=== PATIENT | female | born 1995 | race Caucasian/White ===

== ENCOUNTER 2016-07-21 23:06 | Inpatient (IN) | payer OTHER ==
[~2016-07-21] VITALS: Ht 154.9 cm; Wt 55.8 kg
[2016-07-21 23:11] VITALS: BP 101/57
--- NOTE | 2016-07-22 00:51 | NUR ---
TO ER BED 4
--- NOTE | 2016-07-22 00:55 | NUR ---
PATIENT PRESENTS TO ED WITH RT UPPER AND LOWER ABD PAIN . PT STATES SHE WAS DIAGNOSED WITH RT OVARIAN CYSTS [id number] AGO . DENIES N/V/D; SKIN IS PINK/WARM/DRY; AAOX4 WITH EVEN AND STEADY GAIT; LUNGS CLEAR BL; HR EVEN AND REGULAR; PT DENIES ANY FEVER, CP, SOB, OR COUGH AT THIS TIME; PATIENT STATES PAIN OF 9/10 AT THIS TIME; VSS; PATIENT POSITIONED FOR COMFORT; HOB ELEVATED; BEDRAILS UP X2; BED DOWN. ER MD MADE AWARE OF PT STATUS. BOYFRIEND AT BEDSIDE AT THIS TIME
[2016-07-22] MEDS ORDERED: KETOROLAC 30 MG/ML VIAL IM ONE (01:20)
[2016-07-22 01:40] LABS: EOSINOPHILS # (AUTO) 0.2 K/uL (0-0.4)
--- NOTE | 2016-07-22 01:42 | NUR ---
PT TO CT AT THIS TIME
[2016-07-22 01:44] LABS: BASOPHILS # (AUTO) 0.4 K/uL (0.00-0.22); BASOPHILS % (AUTO) 3.3 % (0.0-2.0); EOSINOPHILS % (AUTO) 1.7 % (0.0-4.0); HEMATOCRIT 38.5 % (36-48); HEMOGLOBIN 13.3 g/dL (12.0-16.0); LYMPHOCYTES # (AUTO) 3.7 K/uL (2.5-16.5); LYMPHOCYTES % (AUTO) 27.5 % (20.5-51.1); MEAN CORPUSCULAR HEMOGLOBIN 29 pg (27-31); MEAN CORPUSCULAR HGB CONC 34 g/dL (33-37); MEAN CORPUSCULAR VOLUME 85 fL (80-94); MONOCYTES # (AUTO) 0.7 K/uL (0.8-1.0); MONOCYTES % (AUTO) 5.4 % (1.7-9.3); NEUTROPHILS # (AUTO) 8.6 K/uL (1.8-7.7); NEUTROPHILS % (AUTO) 62.1 % (42.2-75.2); PLATELET COUNT (AUTO) 243 K/uL (140-450); RED BLOOD CELL COUNT(AUTO) 4.54 MIL/uL (4.20-5.40); RED CELL DISTRIBUTION WIDTH 12.3 % (11.6-13.7); WHITE BLOOD COUNT (AUTO) 13.6 K/uL (4.8-10.8)
[2016-07-22 02:00] LABS: ALBUMIN 3.8 g/dL (3.4-5.0); ANION GAP 12.9 (8-16); CALCIUM 9.2 mg/dL (8.5-10.1); CARBON DIOXIDE 26.2 mmol/L (21-32); CREATININE 0.9 mg/dL (0.6-1.3); POTASSIUM 3.1 mmol/L (3.5-5.1); TOTAL BILIRUBIN 0.2 mg/dL (0.0-1.0); TOTAL PROTEIN, SERUM 7.7 g/dL (6.4-8.2)
--- NOTE | 2016-07-22 03:00 | NUR ---
Patient appears to be resting comfortably in bed. Vital Signs within normal limits. Respirations even and unlabored.
[2016-07-22] MEDS ORDERED: NACL 0.9% 1,000 ML IV ONE (03:40)
[2016-07-22] MEDS ORDERED: ONDANSETRON 4 MG/2 ML VIAL IVP ONE (03:40)
[2016-07-22] MEDS ORDERED: MORPHINE SULFATE 4 MG/ML SYR IVP ONE (03:40)
[2016-07-22] MEDS ORDERED: metroNIDAZOLE 500 MG/NS PREMIX 100 ML IV ONE (03:40)
[2016-07-22] MEDS ORDERED: PIPERACILLIN/TAZOBACTAM 3.375 GM in DEXTROSE 5% 50 ML IV ONE (03:40)
[2016-07-22] MEDS ORDERED: PIPERACILLIN/TAZOBACTAM 3.375 GM VIAL IV ONE (04:10)
[2016-07-22] MEDS ORDERED: HYDROcodone/APAP 5/325 MG 1 TAB TAB PO PRN (04:30)
[2016-07-22] MEDS ORDERED: ACETAMINOPHEN 325 MG TAB PO PRN (04:30)
--- NOTE | 2016-07-22 04:34 | NUR ---
Patient will be admitted to care of DR. GALVEZ. Admited to Med/Surg. Will go to room 125B. Belongings list completed. Report to MARK PATTEN.
[2016-07-22] MEDS ORDERED: KCL 20 MEQ/WATER INJ PREMIX 100 ML IV ONE (04:55)
--- NOTE | 2016-07-22 05:20 | NUR ---
Pt report given to MARK PATTEN. Transfer of care at this time.
[2016-07-22 05:52] VITALS: BP 105/59
--- NOTE | 2016-07-22 06:09 | NUR ---
ADMITTED 21YEARS OLD FEMALE FOR ABDOMINAL PAIN. DIAGNOSIS: ACUTE APPENDICITIS. HISTORY: RIGHT OVARIAN CYST. ORIENTED TO ROOM AND UNIT ROUTINES. PLAN OF CARE DISCUSSED WITH PATIENT, VERBALIZED UNDERSTANDING WELL. CALL LIGHT WITHIN REACH.
[2016-07-22] MEDS: DEXT 5% /NACL 0.9% 1,000 ML IV SCH ×3 (06:28→20:36)
--- NOTE | 2016-07-22 07:27 | NUR ---
ENDORSED CARE AT BEDSIDE WITH ALBA PATTEN, PATIENT IN STABLE CONDITION.
--- NOTE | 2016-07-22 07:28 | NUR ---
RECEIVED REPORT AT BEDSIDE FROM THE SUPERVISOR POULTRY PROCESSING NURSE FOR CONTINUITY OF CARE. PT IS IN BED, NAUSEATED. SHE'S BEEN VOMITING. STARTED THIS MORNING. NOTED THE IV ON THE L AC 20G. D5 NS@ 125ML/HR. HER K-RIDER IS RUNNING AT 5 ML/HR D/T COMPLAINTS OF PAIN PER SUPERVISOR POULTRY PROCESSING NURSE. FLAGYL STILL WAITING TO BE INFUSED. WILL WAIT UNTIL K IS DONE AND THEN START ON FLAGYL. WAITING ON CONSULT FROM DR. BLANKENSHIP.
[2016-07-22 08:00] VITALS: BP 122/67
--- NOTE | 2016-07-22 08:07 | NUR ---
PATIENT HAS BEEN SCREENED AND CATEGORIZED MODERATE NUTRITION RISK. PATIENT WILL BE SEEN WITHIN 3-5 DAYS OF ADMISSION. 07/24/16-07/26/[address]
[2016-07-22] MEDS: ONDANSETRON 4 MG/2 ML VIAL IVP PRN (08:34)
[2016-07-22] MEDS: MORPHINE SULFATE 4 MG/ML SYR IVP PRN ×2 (08:42→20:36)
--- NOTE | 2016-07-22 10:10 | NUR ---
PT IS AMBULATING IN HER ROOM TO AND FROM THE BATHROOM. SHE IS NAUSEATED AND VOMITING FREQUENTLY. ALREADY GAVE HER MORPHINE FOR PAIN AND ZOFRAN FOR NAUSEA. WILL TALK TO DR AND SEE IF SOMETHING ELSE WILL WORK. WILL MONITOR PT.
[2016-07-22] MEDS ORDERED: POTASSIUM CHLORIDE 40 MEQ, LIDOCAINE 1% 25 MG in NACL 0.9% 250 ML IV ONE (11:35)
[2016-07-22] MEDS ORDERED: PROMETHAZINE 25 MG/ML VIAL IVP PRN (11:40)
[2016-07-22 12:38] LABS: INR 1.2 (0.8-1.2); PARTIAL THROMBOPLASTIN TIME 28.4 secs (22-35.6); PROTHROMBIN TIME 10.9 secs (10.8-13.4)
[2016-07-22] MEDS: PIPER/TAZO 3.375GM/D5W PREMIX 50 ML IV SCH ×2 (13:39→20:35)
--- NOTE | 2016-07-22 13:40 | NUR ---
DR. GALVEZ WAS HERE. SAW PT. I TALKED TO HIM ABOUT HER NAUSEA AND VOMITING. HE ORDERED PHENERGAN. ADMINISTERED TO PT. PT TOLERATED WELL. WILL CONTINUE TO MONITOR PT.
--- NOTE | 2016-07-22 13:59 | NUR ---
CM NOTE PER AVIATION PROJECT ENGINEER JUAN, REVIEWS SHOULD GO TO [facility]. INITIAL REVIEW SENT TO [facility] FAX# [phone] TRACKING# [id number] # [phone] PAT EXT [id number]
[2016-07-22] MEDS: BUPIVACAINE-MPF/EPI 0.25% 30 ML VIAL INJ ONE ×2 (14:26→18:13)
--- NOTE | 2016-07-22 14:45 | NUR ---
3 OR NURSES HERE TO TAKE PT TO SURGERY. PT IS WITH FAMILY. IV SL. PT LEFT WITH NURSES ON BED.
[2016-07-22] MEDS ORDERED: DEXAMETHASONE 4 MG/ML VIAL ONE (15:00)
[2016-07-22] MEDS ORDERED: ROCURONIUM 50 MG/5 ML VIAL IV ONE (15:00)
[2016-07-22] MEDS ORDERED: MORPHINE SULFATE 4 MG/ML SYR ONE (15:00)
[2016-07-22] MEDS ORDERED: ONDANSETRON 4 MG/2 ML VIAL ONE (15:00)
[2016-07-22] MEDS ORDERED: KETOROLAC 60 MG/2 ML VIAL IM ONE (15:00)
[2016-07-22] MEDS ORDERED: DESFLURANE 240 ML BTL INH ONE (15:00)
[2016-07-22] MEDS ORDERED: fentaNYL 0.05 MG/ML VIAL ONE (15:00)
[2016-07-22] MEDS ORDERED: MIDAZOLAM 2 MG/2 ML VIAL ONE (15:00)
[2016-07-22] MEDS ORDERED: GLYCOPYRROLATE 0.2 MG/ML VIAL ONE (15:00)
[2016-07-22] MEDS ORDERED: PHENYLEPHRINE 10 MG/ML VIAL ONE (15:00)
[2016-07-22] MEDS ORDERED: PROPOFOL 200 MG/20 ML VIAL IV ONE (15:00)
[2016-07-22] MEDS ORDERED: SUCCINYLCHOLINE CHLORIDE 200 MG/10 ML VIAL IVP ONE (15:00)
[2016-07-22 15:14] LABS: APPEARANCE,URINE CLEAR (CLEAR); BILIRUBIN,URINE NEGATIVE (NEGATIVE); BLOOD, URINE TRACE-I (NEGATIVE); LEUKOCYTE ESTERASE ,URINE NEGATIVE (NEGATIVE); NITRITE, URINE NEGATIVE (NEGATIVE); PH,URINE 6.5 (5.0-9.0); PROTEIN,URINE NEGATIVE (NEGATIVE); UGLUCOSE NEGATIVE (NEGATIVE); UROBILINOGEN,URINE 0.2 EU/dL (0.2 - 1)
[2016-07-22 15:18] LABS: COLOR,URINE STRAW (YELLOW)
[2016-07-22 15:20] LABS: BACTERIA,URINE RARE /HPF (None Seen); RBC,URINE 0-3 /HPF (0-5); WBC,URINE 0-3 /HPF (0-5)
[2016-07-22 15:21] LABS: SQUAMOUS EPITHELIAL CELL,UR 0-3 /LPF (0-3 (FEW))
[2016-07-22] MEDS ORDERED: MIDAZOLAM 2 MG/2 ML VIAL IV ONE (16:05)
[2016-07-22] MEDS ORDERED: METOCLOPRAMIDE 10 MG/2 ML INJ VIAL IVP PRN (16:05)
[2016-07-22] MEDS ORDERED: MORPHINE SULFATE 4 MG/ML SYR IVP PRN ×2 (16:05)
[2016-07-22] MEDS ORDERED: MORPHINE SULFATE 2 MG/ML SYR IVP PRN (16:05)
[2016-07-22 18:10] VITALS: BP 125/73
--- NOTE | 2016-07-22 18:10 | NUR ---
PT RETURNED TO THE FLOOR. RECEIVED REPORT FROM OR NURSES. PT HAD AN OPEN APPENDECTOMY. PT TOLERATED WELL. SHE IS NOW ON TELE MONITOR. ATTACHED NEW MONITOR ON PT. V/S WITHIN NORMAL RANGE. WILL CONTINUE TO DO POST OP VS. FAMILY AT BEDSIDE. WILL CONTINUE TO MONITOR PT.
--- NOTE | 2016-07-22 18:55 | NUR ---
V/S: 1810: 98.0F,125/73, 94, 14, 100% 182: 98.2F, 115/64, 78, 16, 100% 1840: 98.3F, 124/65, 90, 16, 100% 1855: 98.0F, 114/63, 80, 16, 100% PT C/O OF PAIN SO PAIN MEDS GIVEN AT 1830, MORPHINE 4MG. PT SLEEPING SOUNDLY. FAMILY AT BEDSIDE. WILL CONTINUE TO MONITOR PT.
--- NOTE | 2016-07-22 19:29 | NUR ---
ENDORSED PT TO THE TOOL AND DIE MANAGER NURSE AT BEDSIDE FOR CONTINUITY OF CARE. PT IS SLEEPING. V/S GOOD. STABLE. FAMILY AT BEDSIDE. NO SIGNS OF DISTRESS. WILL CONTINUE TO MONITOR.
[2016-07-22 19:30] VITALS: BP 125/67
--- NOTE | 2016-07-22 19:30 | NUR ---
RECEIVED REPORT FROM DAY SHIFT NURSE. PT IS SLEEPING AT THIS TIME. FAMILY MEMBER PRESENT AT BEDSIDE. NO SIGNS OF DISTRESS. ON ROOM AIR, NO S/S OF RESPIRATORY DISTRESS/DISCOMFORT NOTED. IV SITE IS PATENT AND INTACT. PLAN OF CARE DISCUSSED TO THE FAMILY MEMBER, VERBALIZED UNDERSTANDING. SAFETY MEASURES CHECKED, CALL LIGHT WITHIN REACH. WILL CONTINUE TO MONITOR.
[2016-07-22 20:00] VITALS: BP 132/75
--- NOTE | 2016-07-22 20:15 | NUR ---
PT AMBULATED TO THE REST ROOM WITH 1 PERSON ASSIST. PILLOW SUPPORT WAS APPLIED DURING AMBULATION. PT TOLEARETD WELL.
--- NOTE | 2016-07-22 20:45 | NUR ---
PT HAS PAIN OF 7/10, ADMINISTERED PAIN MED PER MD ORDERED. DUE ANTIBIOTIC IV WAS GIVEN. PROVIDED DRUG INFO, BENEFITS AND S/E, VERBALIZED UNDERSTANDING.
--- NOTE | 2016-07-22 22:24 | NUR ---
PT AMBULATED TO THE REST ROOM WITH 1 PERSON ASSIST. PILLOW SUPPORT WAS APPLIED DURING AMBULATION. PT TOLERATED WELL. NOT IN DISTRESS.
[2016-07-23] VITALS: BP 126/71
--- NOTE | 2016-07-23 | NUR ---
V/S CHECKED AND STABLE. HAS NO COMPLAIN OF PAIN. NO S/S OF RESPIRATORY DISTRESS/DISCOMFORT NOTED.
--- NOTE | 2016-07-23 02:00 | NUR ---
PT SLEEPING. SAFETY MEASURES CHECKED, CALL LIGHT WITHIN REACH.
[2016-07-23 04:00] VITALS: BP 105/55
--- NOTE | 2016-07-23 04:00 | NUR ---
V/S CHECKED AND STABLE. HAS NO COMPLAIN OF PAIN. NO S/S OF RESPIRATORY DISTRESS/DISCOMFORT.
[2016-07-23] MEDS: PIPER/TAZO 3.375GM/D5W PREMIX 50 ML IV SCH ×2 (04:29→13:26)
[2016-07-23] MEDS: DEXT 5% /NACL 0.9% 1,000 ML IV SCH ×2 (04:39→12:30)
--- NOTE | 2016-07-23 06:20 | NUR ---
PT COMPLAINED OF PAIN 08/20. MEDICATED ORDERED.
[2016-07-23 06:59] LABS: BASOPHILS # (AUTO) 0.1 K/uL (0.00-0.22); BASOPHILS % (AUTO) 0.4 % (0.0-2.0); EOSINOPHILS # (AUTO) 0.2 K/uL (0-0.4); EOSINOPHILS % (AUTO) 1.3 % (0.0-4.0); HEMATOCRIT 32.4 % (36-48); HEMOGLOBIN 10.7 g/dL (12.0-16.0); LYMPHOCYTES # (AUTO) 1.9 K/uL (2.5-16.5); LYMPHOCYTES % (AUTO) 13.7 % (20.5-51.1); MEAN CORPUSCULAR HEMOGLOBIN 28 pg (27-31); MEAN CORPUSCULAR HGB CONC 33 g/dL (33-37); MEAN CORPUSCULAR VOLUME 85 fL (80-94); MONOCYTES % (AUTO) 7.1 % (1.7-9.3); NEUTROPHILS # (AUTO) 10.3 K/uL (1.8-7.7); NEUTROPHILS % (AUTO) 77.5 % (42.2-75.2); PLATELET COUNT (AUTO) 208 K/uL (140-450); RED CELL DISTRIBUTION WIDTH 12.4 % (11.6-13.7); WHITE BLOOD COUNT (AUTO) 13.5 K/uL (4.8-10.8)
[2016-07-23 07:50] LABS: ALBUMIN 2.8 g/dL (3.4-5.0); ANION GAP 11.2 (8-16); CALCIUM 8.4 mg/dL (8.5-10.1); CARBON DIOXIDE 25.3 mmol/L (21-32); CREATININE 0.8 mg/dL (0.6-1.3); MAGNESIUM 1.6 mg/dL (1.8-2.4); POTASSIUM 3.5 mmol/L (3.5-5.1); TOTAL BILIRUBIN 0.5 mg/dL (0.0-1.0); TOTAL PROTEIN, SERUM 6.1 g/dL (6.4-8.2)
[2016-07-23 08:00] VITALS: BP 106/54
--- NOTE | 2016-07-23 08:00 | NUR ---
PT RESTING AT THIS TIME. NOT IN DISTRESS CONDITION. NO SOB. NO S/S OF RESPIRATORY DISTRESS/DISCOMFORT NOTED.
--- NOTE | 2016-07-23 10:38 | NUR ---
PT ADVISED TO AMBULATE IN THE HALLWAY. PT STILL RESTING. CALL LIGHT WITHIN REACH.
--- NOTE | 2016-07-23 11:00 | NUR ---
RECEIVED PT IN BED. ALERT, AWAKE, ORIENTEDX4. NO SOB NOTED. PT DENIES ANY PAIN OR DISCOMFORT AT THIS TIME. PT ENCOURAGED TO AMBULATE TOLERATED. ABDOMINAL DRESSING CLEAN AND INTACT. CALL LIGHT WITHIN REACH. SAFETY PRECAUTION IN PLACE.
--- NOTE | 2016-07-23 11:00 | NUR ---
ENDORSED REPORT SOLANGE VILLA RN . PT IS IN STABLE CONDITION.
[2016-07-23] MEDS: MORPHINE SULFATE 4 MG/ML SYR IVP PRN (11:25)
--- NOTE | 2016-07-23 11:44 | NUR ---
CM NOTE CONCURRENT REVIEW SENT TO [facility] FAX# [phone] TRACKING# [id number] PH# [phone] CM PAT EXT [id number]
[2016-07-23 12:00] VITALS: BP 113/67
[2016-07-23] MEDS ORDERED: ACET-9525 PO (12:09)
--- NOTE | 2016-07-23 15:00 | NUR ---
DISCHARGE ORDERS MADE BY DR. CROSS, AND CARRIED OUT.
[2016-07-23 16:00] VITALS: BP 100/60
--- NOTE | 2016-07-23 16:58 | NUR ---
PT ALERT AWAKE, ORIENTED X4. DISCHARGE PAPERS SIGNED AND VERBALIZED UNDERSTANDING. DISCHARGE/ HEALTH TEACHINGS GIVEN. PHOTOS OF S/P APPENDECTOMY ABDOMINAL WOUND TAKEN, NO BLEEDING OR DISCHARGE NOTED. IV CANNULA INTACT WHEN REMOVED. NAME ARM BAND REMOVED. PT DENIES ANY PAIN OR DISCOMFORT AT THIS TIME. VITALS STABLE. PT AMBULATORY WITH ASSIST. WHEELED OUT BY RN WITH SPOUSE OUTSIDE THE HOSPITAL TO THEIR PRIVATE OWNED VEHICLE. PT ON STABLE CONDITION
== END 2016-07-23 16:00 | disposition home or self-care (01) | DRG 223 ==
LOC: MED 23:06 → MMU 07-22 04:24
PROVIDERS: ADMIT Internal Medicine Pulmonary Disease; ATTEND Internal Medicine Pulmonary Disease
PROC: 0DJD4ZZ Inspection of Lower Intestinal Tract, Percutaneous Endoscopic Approach (ICD-10-PCS; 2016-07-22)
PROC: 0DTJ0ZZ Resection of Appendix, Open Approach (ICD-10-PCS; principal; 2016-07-22 15:00)
DX: K35.80 Unspecified acute appendicitis (principal); E87.6 Hypokalemia; N83.201 Unspecified ovarian cyst, right side; K38.1 Appendicular concretions; Z53.31 Laparoscopic surgical procedure converted to open procedure
CPT/HCPCS: 36415; 71010; 80053; 81001; 83735; 85025; 85610; 85730; 87081; 87086; 96372; 96374; 96375; 99285; J0330; J1100; J1885; J2250; J2270; J2370; J2405; J2543; J2550; J2704; J3010; J3480; J3490; J7030; J7042; J7060; Q0092